=== PATIENT | male | born 1970 | race Caucasian/White ===

== ENCOUNTER 2019-10-16 13:44 | Emergency (ER) | payer SELFPAY ==
[~2019-10-16] VITALS: Ht 180.3 cm; Wt 81.6 kg
[2019-10-16] MEDS ORDERED: SODIUM CHLORIDE 0.9% 1,000 ML IV ONE ×2 (14:00→15:15)
[2019-10-16 14:39] LABS: Basophils # (auto) 0.1 uL; Basophils % (auto) 1.5 % (0.0-2.0); Eosinophils # (auto) 0 uL; Hematocrit 42.3 % (41.0-53.0); Hemoglobin 14.3 g/dL (13.5-17.5); Lymphocytes # (auto) 0.6 uL; Lymphocytes % (auto) 8.5 % (10.0-50.0); Mean Corpuscular Hemoglobin 33.9 pg (28.0-32.0); Mean Corpuscular Hgb Conc. 33.9 g/dL (32.0-36.0); Mean Corpuscular Volume 99.9 fL (80.0-100.0); Monocytes # (auto) 0.2 uL; Monocytes % (auto) 3.8 % (0.0-12.0); Neutrophils # (auto) 5.6 uL; Neutrophils % (auto) 86.2 % (37.0-80.0); Platelet Count (auto) 81 10^3/uL (140-450); Red Blood Cells 4.23 10^6/uL (4.5-5.90); Red Cell Distribution Width 14.6 % (11.8-14.3); White Blood Cell 6.5 10^3/uL (4.4-10.8)
[2019-10-16 14:57] LABS: Anion Gap 25 (5-15); BUN/Creatinine Ratio 7.6; Blood Urea Nitrogen 9 mg/dL (7-18); Carbon Dioxide 12 mmol/L (21-32); Chloride 98 mmol/L (98-107); Glucose 241 mg/dL (74-106); Potassium 3.6 mmol/L (3.5-5.1); Sodium 135 mmol/L (136-145)
[2019-10-16 14:58] LABS: Alanine Aminotransferase 63 U/L (16-61); Albumin 3.9 g/dL (3.4-5.0); Blood Alcohol < 3.0 mg/dL (0-5); Calcium 8.9 mg/dL (8.5-10.1); GFR African American 84 mL/min; GFR Non-African American 69 mL/min
[2019-10-16 15:03] LABS: Alkaline Phosphatase 137 U/L (45-117); Aspartate Aminotransferase 183 U/L (15-37); Total Protein 7.8 g/dL (6.4-8.2)
[2019-10-16] MEDS ORDERED: LORazepam 2MG/ML-1ML VIAL IV ONE (15:15)
[2019-10-16] MEDS ORDERED: ONDANSETRON HCL 4 MG/2 ML VIAL IV ONE (15:15)
[2019-10-16 16:10] LABS: Amphetamine Screen, Urine NEGATIVE (NEGATIVE); Barbiturate Scree,Urine NEGATIVE (NEGATIVE); Benzodiazephine Screen, Urine NEGATIVE (NEGATIVE); Cannabinoid Screen, Urine NEGATIVE (NEGATIVE); Cocaine Screen, Urine NEGATIVE (NEGATIVE); Opiate Scree,Urine NEGATIVE (NEGATIVE); Phencyclidine Screen, Urine NEGATIVE (NEGATIVE)
[2019-10-16 20:38] LABS: BUN/Creatinine Ratio 9.3; Calcium 7.5 mg/dL (8.5-10.1); Potassium 3.7 mmol/L (3.5-5.1)
[2019-10-16 23:00] VITALS: BP 131/80
== END 2019-10-16 23:23 | disposition home or self-care (01) ==
LOC: ER 13:44 → EDBD 13:44 → ER 23:23
DX: S00.31XA Abrasion of nose, initial encounter (principal); F10.129 Alcohol abuse with intoxication, unspecified; R55 Syncope and collapse; R41.82 Altered mental status, unspecified; E87.2 Acidosis; R73.9 Hyperglycemia, unspecified; F17.210 Nicotine dependence, cigarettes, uncomplicated; Y90.1 Blood alcohol level of 20-39 mg/100 ml; X58.XXXA Exposure to other specified factors, initial encounter; Y93.89 Activity, other specified; Y92.89 Other specified places as the place of occurrence of the external cause; Y99.8 Other external cause status
CPT/HCPCS: 36415; 36600; 70450; 71045; 80048; 80053; 80307; 80320; 82805; 83605; 83880; 84484; 85025; 93005; 96361; 96374; 96375; 99284; J2060; J2405; J7030